=== PATIENT | female | born 1985 | race Two or more races ===

== ENCOUNTER 2020-11-13 13:16 | Outpatient (REF) | payer OTHER, SELFPAY ==
[2020-11-14 09:48] LABS: CT PCR NOT DETECTED (Not Detect.); NG PCR NOT DETECTED (Not Detect.)
[2020-11-14 13:45] LABS: BV Int Neg Control Negative (Negative); BV Int Pos Control Positive (Positive)
== END 2020-11-13 13:17 | disposition home or self-care (01) ==
LOC: HO.LAB 13:16
PROVIDERS: Visit Provider Nurse Practitioner Family
DX: Z11.3 Encounter for screening for infections with a predominantly sexual mode of transmission (principal); B96.89 Other specified bacterial agents as the cause of diseases classified elsewhere; N76.0 Acute vaginitis
CPT/HCPCS: 87480; 87491; 87510; 87591; 87660

== ENCOUNTER → 2021-10-03 15:37 | Outpatient (BNVA) | payer OTHER, SELFPAY | PROVIDERS: PCP Internal Medicine; Visit Provider Advanced Practice Midwife | DX: Z13.89 Encounter for screening for other disorder (principal) ==

== ENCOUNTER → 2021-11-21 13:50 | Outpatient (BNVA) | payer OTHER, SELFPAY | PROVIDERS: PCP Internal Medicine; Visit Provider Advanced Practice Midwife | DX: Z30.432 Encounter for removal of intrauterine contraceptive device (principal); Z30.011 Encounter for initial prescription of contraceptive pills | CPT/HCPCS: 58301 ==

== ENCOUNTER 2023-09-24 13:30 | Outpatient (AMB) | payer OTHER, SELFPAY ==
[2023-09-24 13:46] VITALS: BP 124/80; PULSE 77; TEMP 36.7; O2SAT 98
--- NOTE | 2023-09-24 13:46 | AM.OFFWIN_ITS ---
Intake Vital Signs 09/24/23 13:46 Weight 142 lb BP 124/80 Blood Pressure Location Lt brachial Position Sitting Pulse 77 Pulse Source Pulse Oximeter Temp 98.1 F Temp Source Temporal Artery Scan Pulse Oximetry (%) 98 Oxygen Delivery Method Room Air Intake Visit Reasons: EP Cut on pointer LT hand/mouth pain Intake Note: pt is here today for cut on pointer finger started today Patient Tobacco Use Status: Never used Tobacco Allergies shrimp Allergy (Severe, Verified 09/24/23 13:49) Anaphylaxis shrimp Allergy (Unknown, Uncoded 07/03/23 15:27) rash Do you need a note to return to daycare/school/sports/work: Yes HPI EP Cut on pointer LT hand/mouth pain HPI Details Patient presents today with a laceration on her left index finger. This occured around 0600 this morning while she was making lunch. States she cut finger with a clean knife. She was able to stop the bleeding with pressure application. She then applied band-aid. 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 She also reports a sinus infection, L>R, causing pressure in her face and left ear. This has been ongoing for a few days. Denies any respiratory symptoms. [facility] Medical History Headache Family History Maternal Aunt History of breast cancer Social History Alcohol intake: current Alcohol intake frequency: holidays/special occasions only Patient Tobacco Use Status: Never used Tobacco Sexual orientation: Straight/Heterosexual Gender identity: Female Review of Systems Const All systems reviewed & are unremarkable except as noted in HPI and below Physical Exam Vital Signs: Last Vital Signs Temp 98.1 F 09/24/23 13:46 Pulse 77 09/24/23 13:46 BP 124/80 09/24/23 13:46 Pulse Ox 98 09/24/23 13:46 Oxygen Delivery Method Room Air 09/24/23 13:46 Const General: cooperative and no acute distress HEENT Head: Yes normal to inspection Ears: hearing grossly normal bilaterally and TM's normal bilaterally General nose exam: Normal external nose present Face and sinus: Yes sinus tenderness (maxillary/frontal L>R) Throat: Yes posterior oropharynx normal Neck Other: mild left ant cervical lymphadenopathy Resp Effort & Inspection: normal respiratory effort Auscultation: clear to auscultation bilaterally Cardio Rate: regular rate Rhythm: regular rhythm Skin Other: approx 1cm laceration wrapping around distal aspect of left index finger. Mild separation of edges, however no active bleeding. Extrem General: Yes capillary refill normal and Yes no clubbing, cyanosis or edema Psych Appearance: grossly normal Mental Status: mental status grossly normal Speech and movement: Normal speech and movement present Office Procedures Laceration Repair Laceration repair performed by: Jennifer Zambrano Explained risks and benefits to parent: Yes Informed consent given: Yes Consent signed: Yes Location: left index finger Length: 1cm Sedation: No Irrigation: saline Preparation: betadine Wound exploration: none Deep closure: No Skin closure: glue Topical treatment: dry (steri-strips once dry) Tetanus toxoid ordered: No (patient declined) Patient tolerated procedure: well [place]: [place] [id number] Repair <2.5cm Procedure code (CPT) selection complete Assessment & Plan Assessment & Plan (1) Laceration of left index finger: Code(s): S61.211A - Laceration without foreign body of left index finger without damage to nail, initial encounter Qualifiers: Encounter type: initial encounter Damage to nail status: without damage Foreign body presence: without foreign body Qualified Code(s): S61.211A - Laceration without foreign body of left index finger without damage to nail, initial encounter Plan: Area cleansed with NS and betadine. Wound then effectively closed with skin glue/dermabond. Once dried, 2 steri strips applied. Patient tolerated well with no c/o pain. Advised to keep area clean/dry, and we reviewed signs/symptoms of infection, and if these occur to return to the clinic for further evaluation/treatment. She verbalizes understanding and agrees to plan. She declines tetanus shot. (2) Acute sinusitis: Code(s): J01.90 - Acute sinusitis, unspecified Qualifiers: Sinusitis location: maxillary Recurrence: non-recurrent Qualified Code(s): J01.00 - Acute maxillary sinusitis, unspecified Plan: Will start on azithromycin for acute sinusitis. Advised increased hydration, rest, and otc cold/flu products as needed for symptom treatment. Will return to care if she does not improve with treatment. Medications: New azithromycin For 250 mg dose pack: take 500 mg today (day 1), then 250 mg for 4 days (days 2-5) PO 6 tabs 0RF J01.00 - Acute maxillary sinusitis, unspecified Discontinued desogestrel-ethinyl estradiol 0.15-0.03 mg (Apri) Discontinued Reason: Patient no longer taking 1 tab PO DAILY PRN 28 tabs 4RF ocp Coding Level of Care Code Est Pt Level 4 (35477) Diagnoses Laceration of left index finger without foreign body without damage to nail, initial encounter S61.211A Encounter type: initial encounter Damage to nail status: without damage Foreign body presence: without foreign body Acute non-recurrent maxillary sinusitis J01.00 Sinusitis location: maxillary Recurrence: non-recurrent
== END 2023-09-24 14:33 | disposition home or self-care (01) ==
PROVIDERS: PCP Internal Medicine; Visit Provider Nurse Practitioner Family
DX: S61.211A Laceration without foreign body of left index finger without damage to nail, initial encounter (principal); J01.00 Acute maxillary sinusitis, unspecified
CPT/HCPCS: 99214